=== PATIENT | male | born 1970 | race Caucasian/White ===

== ENCOUNTER 2022-11-01 17:09 | Emergency (ER) | payer OTHER ==
[~2022-11-01] VITALS: Ht 170.2 cm; Wt 70.5 kg
[2022-11-01] MEDS ORDERED: NS 500 ML IV ONE (17:35)
[2022-11-01 18:14] LABS: BASO # 0.1 10^3/uL (0.0-0.2); BASO % 0.6 % (0.0-1.0); EOS # 0.2 10^3/uL (0.0-0.5); EOS % 2.6 % (0.0-3.0); HEMATOCRIT 46.7 % (42.0-52.0); HEMOGLOBIN 16.1 g/dl (13.5-17.5); LYMPH # 3.2 10^3/uL (1.5-5.0); LYMPH % 38.8 % (24.0-44.0); MEAN CORPUSCULAR HEMOGLOBIN 32.4 pg (27.0-33.0); MEAN CORPUSCULAR HGB CONC 34.5 g/dl (32.0-36.5); MONO # 0.8 10^3/uL (0.0-0.8); MONO % 9.7 % (2.0-8.0); NEUTROPHILS # 3.9 10^3/uL (1.5-8.5); NEUTROPHILS % 48.1 % (36.0-66.0); PLATELET COUNT, AUTOMATED 220 10^3/uL (150-450); RED BLOOD COUNT 4.97 10^6/uL (4.30-6.10); WHITE BLOOD COUNT 8.2 10^3/uL (4.0-10.0)
[2022-11-01 18:28] LABS: ALBUMIN 4.4 G/DL (3.2-5.2); BILIRUBIN,DIRECT 0.2 MG/DL (<0.4); BILIRUBIN,TOTAL 0.6 MG/DL (0.3-1.2); TOTAL PROTEIN 7.2 G/DL (5.7-8.2)
[2022-11-01] MEDS ORDERED: ISOVUE-370 76% 100ML VIAL As Ordered ONE (18:55)
[2022-11-01] MEDS ORDERED: SUCRALFATE SUSP 1GM/10ML UD PO ONE (20:35)
[2022-11-01] MEDS ORDERED: OMEP40CA4 PO (20:36)
[2022-11-01] MEDS ORDERED: SUCR1TA PO (20:36)
[2022-11-01 20:54] VITALS: BP 145/94
== END 2022-11-01 20:57 | disposition home or self-care (01) ==
LOC: M ED 18:52
DX: R10.9 Unspecified abdominal pain (principal); F10.10 Alcohol abuse, uncomplicated; F17.200 Nicotine dependence, unspecified, uncomplicated; Z79.83 Long term (current) use of bisphosphonates; Z79.891 Long term (current) use of opiate analgesic; Z86.718 Personal history of other venous thrombosis and embolism; Z91.030 Bee allergy status

== ENCOUNTER 2025-10-05 10:50 | Emergency (ER) | payer OTHER ==
[~2025-10-05] VITALS: Ht 170.2 cm; Wt 74.0 kg
[~2025-10-05 10:50] MED LIST: OMEP40CA4 PO; SUCR1TA PO
[2025-10-05 11:51] LABS: BASO # 0.0 10^3/uL (0.0-0.2); BASO % 0.5 % (0.0-1.0); EOS # 0.2 10^3/uL (0.0-0.5); EOS % 2.5 % (0.0-3.0); LYMPH # 2.0 10^3/uL (1.5-5.0); LYMPH % 26.6 % (24.0-44.0); MONO # 0.6 10^3/uL (0.0-0.8); MONO % 7.2 % (2.0-8.0); NEUTROPHILS # 4.8 10^3/uL (1.5-8.5); NEUTROPHILS % 62.9 % (36.0-66.0); PLATELET COUNT, AUTOMATED 225 10^3/uL (150-450)
[2025-10-05 12:15] VITALS: O2SAT 98
[2025-10-05 12:17] LABS: ALT/SGPT 16 U/L (7.0-40); AST/SGOT 18 U/L (<34); CALCIUM LEVEL 9.5 MG/DL (8.5-10.1); CARBON DIOXIDE LEVEL 28 MMOL/L (20-31); CHLORIDE LEVEL 105 MMOL/L (98-107); CREATININE FOR GFR 0.91 MG/DL (0.70-1.30); GLOMERULAR FILTRATION RATE > 90.0 (>56); POTASSIUM SERUM 4.4 MMOL/L (3.5-5.1); SODIUM LEVEL 139 MMOL/L (136-145)
[2025-10-05 12:18] LABS: CK-MB VALUE MASS 1.2 NG/ML (<3.6)
[2025-10-05 12:21] LABS: CPK CREATINE PHOSPHOKINASE 95 U/L (46-171); MB/CK RELATIVE INDEX 1.26 (< OR =4)
[2025-10-05 12:28] LABS: INR 0.95
[2025-10-05 12:30] VITALS: BP 148/98
[2025-10-05 14:02] VITALS: TEMP 97.8
== END 2025-10-05 14:15 | disposition home or self-care (01) ==
LOC: M ED 10:50
DX: J06.9 Acute upper respiratory infection, unspecified (principal); F17.200 Nicotine dependence, unspecified, uncomplicated; F10.10 Alcohol abuse, uncomplicated; Z91.030 Bee allergy status